=== PATIENT | male | born 1970 | race Caucasian/White ===

== ENCOUNTER 2016-06-21 08:47 | Emergency (ER) | payer OTHER ==
[~2016-06-21] VITALS: Ht 180.3 cm; Wt 102.1 kg
[~2016-06-21 08:47] MED LIST: ALBUTEROL0.09 MG/A1 INH; AMOXIL 875 MG875 MG PO; AUGMENTIN 875-1 EACH PO; LEVSIN/SL0.125 MG SL; MOTRIN 800MG T800 MG PO; MULTIPLE VITAM1 EAC2 PO; PREDNISONE 20MG20 MG PO; PROMETHAZINE V473 M2 PO; ZOFRAN4 M1 SL
[2016-06-21 08:54] VITALS: BP 155/91
--- NOTE | 2016-06-21 09:06 | ED INFLUENZA/URI COMPLAINT ---
History of Present Illness General Chief Complaint: Upper Respiratory Sx/Fever Stated Complaint: COUGH FEVER JOINT PAIN Source: patient Exam Limitations: no limitations Vital Signs & Intake/Output Vital Signs & Intake/Output Vital Signs Date Time Temp Pulse Resp B/P Pulse O2 O2 Flow FiO2 Ox Delivery Rate 06/21 0952 97.9 06/21 0854 97.9 99 20 155/91 100 Room Air Allergies Coded Allergies: No Known Drug Allergies (10/27/15) Reconcile Medications Albuterol Sulfate (Ventolin Hfa) 90 MCG HFA.AER.AD 2 PUF INH Q4-6 PRN PRN SHORTNESS OF BREATH Amlodipine Besylate 10 MG TABLET 1 TAB PO DAILY HEART (Reported) Azithromycin (Zithromax) 500 MG TABLET 1 TAB PO DAILY BRONCHITIS Benzonatate (Tessalon Perle) 100 MG CAPSULE 1 CAP PO TID PRN COUGH Bupropion HCl (Bupropion XL) 300 MG TAB.ER.24H 1 TAB PO QAM MENTAL HEALTH ( Reported) Mometasone Furoate (Nasonex) 50 MCG SPRAY.PUMP 2 SPRAY NASB DAILY CONGESTION Multivitamin (Multiple Vitamins) 1 EACH TABLET 1 TAB PO DAILY SUPPLEMENT ( Reported) Robitussin AC (Guaifenesin-Codeine Syrup) 200 MG-20 MG/10 ML LIQUID 10 ML PO TID PRN COUGH Triage Note: PT TO ED C/O "SCRATCHY THROAT" SINCE SATURDAY. PRODUCTIVE COUGH WITH GREEN SPUTUM. DENIES FEVERS AT HOME, AFEBRILE NOW. Triage Nurses Notes Reviewed? yes Onset: Gradual Duration: constant Timing: recent history Severity: moderate Severity Numbers: 5 HPI: Patient is a 45-year-old male who presents to emergency room with a 7 day history of gradually worsening itchy scratchy throat, chills, bodyaches, tactile fevers, mild nausea and diarrhea-last bowel movement was today no blood no melena noted. Nonproductive cough headache muscle aches generalized weakness and fatigue. Patient has positive sick contacts at home. Denies any shortness of breath chest pain and arm pain jaw pain leg swelling hemoptysis neck pain neck stiffness (XANDER LAWLER) Past History Travel History Traveled to [place] past 21 day No Medical History Any Pertinent Medical History? see below for history Neurological: NONE EENT: NONE Cardiovascular: hypertension Respiratory: NONE Gastrointestinal: GERD Hepatic: NONE Renal: NONE Musculoskeletal: NONE Psychiatric: depression Endocrine: NONE Surgical History Surgical History: non-contributory Psychosocial History What is your primary language [place] Tobacco Use: Quit >30 days ago ETOH Use: occasional use Illicit Drug Use: denies illicit drug use Family History Hx Contributory? No (XANDER LAWLER) Review of Systems Review of Systems Constitutional: Reports: see HPI, chills, fever. EENTM: Reports: see HPI, nasal congestion. Respiratory: Reports: cough. Cardiovascular: Reports: no symptoms. GI: Reports: no symptoms. Genitourinary: Reports: no symptoms. Musculoskeletal: Reports: see HPI, joint pain. Skin: Reports: no symptoms. Neurological/Psychological: Reports: no symptoms. Hematologic/Endocrine: Reports: no symptoms. Immunologic/Allergic: Reports: no symptoms. All Other Systems: Reviewed and Negative (XANDER LAWLER) Physical Exam Physical Exam General Appearance: no apparent distress, alert, comfortable Ears, Nose, Throat: moist mucous membrane, hearing grossly normal, Tympanic normal, pharynx normal, nasal congestion, nasal drainage, nontender sinus Comments: Well-developed well-nourished person in no acute distress HEENT: extraocular motion intact, no nystagmus. Pupils equally round and reactive to light and accommodation. Nose is atraumatic. External auditory canal and Tympanic membranes clear. Pharynx normal. No swelling or edema. Neck: Supple, no lymphadenopathy, normal range of motion without pain or tenderness Back: Nontender, no CVA tenderness. Full range of motion Cardiovascular: Regular rate and rhythms no murmurs rubs or gallops, normal JVP Respiratory: Chest nontender. No respiratory distress.breath sounds clear to auscultation bilaterally Abdomen: Soft, nontender nondistended, no appreciable organomegaly. Normal bowel sounds. No ascites Extremity: No edema, no calf tenderness to palpation, normal and equal pulses. Neuro: Alert oriented x3, motor sensory normal, cranial nerves II through XII grossly intact. Skin: No appreciable rash on exposed skin, skin is warm and dry. Psych: Mood and affect is normal, memory and judgment is normal. Core Measures Severe Sepsis Present: No Septic Shock Present: No (XANDER LAWLER) Progress Differential Diagnosis: influenza, meningitis, neutropenia, otitis, pneumonia, pharyngitis, sinusitis Plan of Care: Orders Procedure Date/time Status RAPID VIRAL INFLUENZA A 06/21 905 Complete THROAT CULTURE W/QUICK STREP 06/21 905 Active Patient currently is in no apparent distress. Patient had negative influenza and negative rapid strep culture is pending. Patient will be treated for concerns of upper respiratory infection and bronchitis. No signs of meningitis. Oxygen saturation 98% room air (XANDER LAWLER) Initial ED EKG: none (XANDER LAWLER) Departure Departure Disposition: HOME OR SELF CARE Condition: Stable Clinical Impression Primary Impression: Upper respiratory infection Referrals: LAKHWINDER DENISE APRN (PCP/Family) Additional Instructions: As discussed begin the prescription of azithromycin for the full course. Begin the prescription Tessalon Perles and Robitussin with codeine for cough. Begin the prescription of Ventolin for shortness of breath and Nasonex for congestion. Begin [id number] Mucinex and Sudafed for congestion. If no better on Saturday follow-up with primary care doctor. If symptoms worsen return to emergency room. Begin drinking plenty of water for hydration begin over-the- counter Motrin for pain and Tylenol for fevers. Prescription is waiting at [facility] Departure Forms: Customer Survey General Discharge Information Prescriptions: Current Visit Scripts Benzonatate (Tessalon Perle) 1 CAP PO TID PRN COUGH #21 CAP Robitussin AC (Guaifenesin-Codeine Syrup) 10 ML PO TID PRN COUGH #100 ML Albuterol Sulfate (Ventolin Hfa) 2 PUF INH Q4-6 PRN PRN SHORTNESS OF BREATH #1 INHAL Azithromycin (Zithromax) 1 TAB PO DAILY #5 TAB Mometasone Furoate (Nasonex) 2 SPRAY NASB DAILY #1 INHAL (XANDER LAWLER) PA/GENERAL HOUSE WORKER Co-Sign Statement Statement: ED Attending supervision documentation- [] I saw and evaluated the patient. I have also reviewed all the pertinent lab results and diagnostic results. I agree with the findings and the plan of care as documented in the PA's/GENERAL HOUSE WORKER's documentation. [x] I have reviewed the ED Record and agree with the PA's/GENERAL HOUSE WORKER's documentation. [] Additions or exceptions (if any) to the PAs/GENERAL HOUSE WORKER's note and plan are summarized below: [] (JAMES SÁNCHEZ DO)
[2016-06-21] MEDS ORDERED: BUPROPION XL300 M1 PO (09:12)
[2016-06-21] MEDS ORDERED: AMLODIPINE BESY10 M1 PO (09:13)
[2016-06-21] MEDS ORDERED: NASONEX17 GM NASB (09:59)
[2016-06-21] MEDS ORDERED: VENTOLIN HFA18 GM INH (09:59)
[2016-06-21] MEDS ORDERED: ZITHROMAX500 M2 PO (09:59)
[2016-06-21] MEDS ORDERED: GUAIFENESIN-COD10 ML PO (09:59)
[2016-06-21] MEDS ORDERED: TESSALON PERLE100 M1 PO (09:59)
[2016-11-07] MEDS ORDERED: LOSARTAN POTAS100 M1 PO (17:02)
[2016-11-07] MEDS ORDERED: FUROSEMIDE20 M1 PO (17:03)
[2016-11-07] MEDS ORDERED: OXAPROZIN600 M1 PO (17:04)
[2016-11-07] MEDS ORDERED: ASPIRIN EC81 M1 PO (17:04)
[2016-11-07] MEDS ORDERED: TYLENOL WITH C1 EACH PO (17:47)
== END 2016-06-21 10:12 ==
LOC: ERH 08:47
DX: J06.9 Acute upper respiratory infection, unspecified (principal); Z87.891 Personal history of nicotine dependence
CPT/HCPCS: 87804; 87804-59

== ENCOUNTER 2016-07-19 10:35 | Emergency (ER) | payer OTHER ==
[~2016-07-19] VITALS: Ht 180.3 cm; Wt 104.3 kg
[~2016-07-19 10:35] MED LIST changes: +AMLODIPINE BESY10 M1 PO; +BUPROPION XL300 M1 PO; +GUAIFENESIN-COD10 ML PO; +NASONEX17 GM NASB; +TESSALON PERLE100 M1 PO; +VENTOLIN HFA18 GM INH; +ZITHROMAX500 M2 PO
[2016-07-19 10:51] LABS: ABSOLUTE BASOPHIL COUNT 0 /CUMM (0.0-0.2); ABSOLUTE EOSINOPHIL COUNT 0.1 /CUMM (0.0-0.7); ABSOLUTE GRANULOCYTE CT 3.9 /CUMM (1.4-6.5); ABSOLUTE MONOCYTE COUNT 0.7 /CUMM (0.10-0.60); BASOPHIL % 0.5 % (0.0-2.0); EOSINOPHIL % 1.8 % (0-5); GRANULOCYTE % 57.9 % (42.2-75.2); HEMATOCRIT 40.9 % (42-52); MEAN CORPUSCULAR HGB 29.9 PG (27.0-31.0); MEAN CORPUSCULAR HGB CONC 35.2 G/DL (33.0-37.0); MEAN CORPUSCULAR VOLUME 84.9 FL (80.0-94.0); MEAN PLATELET VOLUME 9.6 FL (7.4-10.4); PLATELET COUNT 187 /CUMM (130-400); RED BLOOD CELL CT 4.82 /CUMM (4.70-6.10); WHITE BLOOD CELL COUNT 6.8 /CUMM (4.8-10.8)
--- NOTE | 2016-07-19 11:34 | ED GI/GU/ABDOMINAL COMPLAINT ---
History of Present Illness General Chief Complaint: Nausea, Vomiting, Diarrhea Stated Complaint: MULTIPLE COMPLAINTS/NAUSEA/LFT EAR PAIN Source: patient Exam Limitations: no limitations Vital Signs & Intake/Output Vital Signs & Intake/Output Vital Signs Date Time Temp Pulse Resp B/P Pulse O2 O2 Flow FiO2 Ox Delivery Rate 07/19 1326 97.5 82 18 132/55 98 Room Air Room Air 07/19 1039 97.7 86 18 144/53 99 Room Air Allergies Coded Allergies: No Known Drug Allergies (10/27/15) Reconcile Medications Albuterol Sulfate (Ventolin Hfa) 90 MCG HFA.AER.AD 2 PUF INH Q4-6 PRN PRN SHORTNESS OF BREATH Amlodipine Besylate 10 MG TABLET 1 TAB PO DAILY HEART (Reported) Azithromycin (Zithromax) 500 MG TABLET 1 TAB PO DAILY BRONCHITIS Benzonatate (Tessalon Perle) 100 MG CAPSULE 1 CAP PO TID PRN COUGH Bupropion HCl (Bupropion XL) 300 MG TAB.ER.24H 1 TAB PO QAM MENTAL HEALTH ( Reported) Dicyclomine Hydrochloride (Bentyl) 10 MG CAPSULE 1 CAP PO TID PRN abdominal pain Mometasone Furoate (Nasonex) 50 MCG SPRAY.PUMP 2 SPRAY NASB DAILY CONGESTION Multivitamin (Multiple Vitamins) 1 EACH TABLET 1 TAB PO DAILY SUPPLEMENT ( Reported) Ondansetron (Zofran Odt) 4 MG TAB.RAPDIS 1 TAB SL TID PRN nausea Robitussin AC (Guaifenesin-Codeine Syrup) 200 MG-20 MG/10 ML LIQUID 10 ML PO TID PRN COUGH Triage Note: STATES THAT HE WOKE THIS AM WITH NAUSEA AND MID ABD AND R SIDE ABD PAIN. HAS NOT VOMITTED Triage Nurses Notes Reviewed? yes HPI: Patient is a 45-year-old male presents complaining of nausea, malaise, upper abdominal pain. Symptoms onset yesterday. Pain is an intermittent sharp pain currently is mild, has been severe at times. Nausea is currently moderate, fatigue is currently moderate to severe. Patient reports that symptoms do not significantly change with eating. Positive sick contacts at home and at work. Subjective fevers and chills. Last bowel movement was this morning and normal. Patient denies suspicious food intake, dysuria, vomiting. Past History Travel History Traveled to [place] past 21 day No Medical History Any Pertinent Medical History? see below for history Neurological: NONE EENT: NONE Cardiovascular: hypertension Respiratory: NONE Gastrointestinal: GERD Hepatic: NONE Renal: NONE Musculoskeletal: NONE Psychiatric: depression Endocrine: NONE Surgical History Surgical History: non-contributory Psychosocial History What is your primary language Martiniquais Tobacco Use: Quit >30 days ago ETOH Use: occasional use Illicit Drug Use: denies illicit drug use Family History Hx Contributory? No Review of Systems Review of Systems Constitutional: Reports: chills, fever, malaise. EENTM: Reports: no symptoms. Respiratory: Denies: cough, short of breath. Cardiovascular: Denies: chest pain. GI: Reports: see HPI, abdominal pain, nausea. Denies: vomiting. Genitourinary: Reports: no symptoms. Musculoskeletal: Reports: back pain (NONE CURRENTLY). Skin: Reports: no symptoms. Neurological/Psychological: Reports: no symptoms. Hematologic/Endocrine: Reports: no symptoms. Immunologic/Allergic: Reports: no symptoms. Physical Exam Physical Exam General Appearance: well developed/nourished, alert, awake Head: atraumatic, normal appearance Eyes: Bilateral: normal appearance, PERRL, EOMI. Ears, Nose, Throat, Mouth: hearing grossly normal, moist mucous membrane Neck: normal inspection, supple, full range of motion Respiratory: normal breath sounds, chest non-tender, no respiratory distress, lungs clear Cardiovascular: regular rate/rhythm (NO MURMUR) Gastrointestinal: normal bowel sounds, soft, MODERATE EPIGASTRIC AND RIGHT UPPER QUADRANT TENDERNESS. mILD DIFFUSE LOWER ABDOMINAL TENDERNESS. Back: normal inspection, normal range of motion Extremities: normal range of motion Neurologic/Psych: no motor/sensory deficits, awake, alert, oriented x 3, normal gait, normal mood/affect Skin: intact, normal color, warm/dry Core Measures ACS in differential dx? No Severe Sepsis Present: No Septic Shock Present: No Progress Differential Diagnosis: AAA, AMI, appendicitis, biliary colic, cholecystitis, diverticulitis, gastritis, hepatitis, ischemic bowel, inflamm bowel dis, pancreatitis, PUD/GERD, perforated viscous, pyelonephritis, SBO, ureterolithiasis, urinary retention, UTI/pyelo Plan of Care: Orders Procedure Date/time Status Add-on Test (ER Only) 07/19 1306 Active CULTURE,URINE 07/19 1231 Active URINALYSIS 07/19 1230 Complete Add-on Test (ER Only) 07/19 1141 Active RAPID VIRAL INFLUENZA A 07/19 1141 Complete LIPASE 07/19 1042 Complete COMPREHENSIVE METABOLIC PANEL 07/19 1039 Complete CBC WITHOUT DIFFERENTIAL 07/19 1039 Complete Laboratory Tests 07/19/16 1228: Urine Color YEL, Urine Clarity CLEAR, Urine pH 6.0, Ur Specific [place] 1.025, Urine Protein NEG, Urine Ketones NEG, Urine Nitrite NEG, Urine Bilirubin NEG, Urine Urobilinogen 0.2, Ur Leukocyte Esterase NEG, Ur Microscopic SEDIMENT EXAMINED, Urine RBC RARE, Urine WBC 3-5 H, Urine Hemoglobin TRACE-INTACT H, Urine Glucose NEG 07/19/16 1042: Anion Gap 12, Estimated GFR > 60, BUN/Creatinine Ratio 18.8, Glucose 93, Calcium 9.6, Total Bilirubin 0.6, AST 35, ALT 47, Alkaline Phosphatase 71, Total Protein 7.3, Albumin 4.4, Globulin 2.9, Albumin/Globulin Ratio 1.5, Lipase 443 H, CBC w Diff NO MAN DIFF REQ, RBC 4.82, MCV 84.9, MCH 29.9, RDW 13.0, MPV 9.6, Gran % 57.9, Lymphocytes % 29.7, Monocytes % 10.1 H, Eosinophils % 1.8, Basophils % 0.5, Absolute Granulocytes 3.9, Absolute Lymphocytes 2.0, Absolute Monocytes 0.7 H, Absolute Eosinophils 0.1, Absolute Basophils 0, PUBS MCHC 35.2 Microbiology 07/19 1231 URINE ROUT: Urine Culture - RECD 07/19 1228 NASOPHARYN: Influenza Virus A & B Rapid Smear - COMP 1305 07/19/16: Results discussed with patient. No peritoneal signs on exam. CT scan deferred. Patient tolerating oral intake, appears stable for discharge. (GATO HUBBARD,PAMELA) Diagnostic Imaging: Viewed by Me: Ultrasound. Discussed w/RAD: Ultrasound. Radiology Impression: PATIENT: OSMEL CALVO PRESENT AGE : 45 PATIENT ACCOUNT NO: [id number] : 72 LOCATION: [facility] ORDERING PHYSICIAN: PAMELA HUBBARD SERVICE DATE: 07/19/16-114 EXAM TYPE: US - US-LIMITED ABDOMEN EXAMINATION: US ABDOMEN LIMITED CLINICAL INFORMATION: Upper abdominal pain and tenderness. COMPARISON: 02/18/2007 TECHNIQUE: Real-time imaging of the right upper quadrant abdominal viscera. FINDINGS: PANCREAS: Obscured by overlying bowel gas. LIVER: The liver demonstrates increased echogenicity suspicious for hepatic steatosis. No focal lesion or intrahepatic biliary duct dilatation is identified. GALLBLADDER: The gallbladder is physiologically distended without evidence of stones, sludge, polyps, wall thickening or pericholecystic fluid. COMMON BILE DUCT: Normal in caliber measuring 0.3 cm in diameter. RIGHT KIDNEY: No hydronephrosis. No renal calculi or focal parenchymal lesions. The kidney measures 10.5 cm in maximum dimension. FREE FLUID: None. IMPRESSION: Hepatic steatosis. Normal appearance of the gallbladder. Pancreas obscured by overlying bowel gas. 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 <Electronically signed in Other Vendor System> SIGNED BY: MARSHA BENNETT MD 07/19/16 1257 Initial ED EKG: none Departure Departure Time of Disposition: 1309 Disposition: HOME OR SELF CARE Condition: Stable Clinical Impression Primary Impression: Abdominal pain Qualifiers: Abdominal location: upper abdomen, unspecified Qualified Code: R10.10 - Upper abdominal pain, unspecified Referrals: LAKHWINDER DENISE APRN (PCP/Family) Additional Instructions: Clinically fluids and rest. Follow-up with primary care provider if no improvement by Saturday. Return to the emergency department immediately if you develop fevers, pain localizes to the right lower abdomen, unable to stay hydrated, or worsening of symptoms. Departure Forms: Customer Survey General Discharge Information Prescriptions: Current Visit Scripts Ondansetron (Zofran Odt) 1 TAB SL TID PRN nausea #10 TAB Dicyclomine Hydrochloride (Bentyl) 1 CAP PO TID PRN abdominal pain #12 CAP
--- NOTE | 2016-07-19 12:57 | ULTRASOUND REPORT ---
EXAMINATION: US ABDOMEN LIMITED CLINICAL INFORMATION: Upper abdominal pain and tenderness. COMPARISON: 02/18/2007 TECHNIQUE: Real-time imaging of the right upper quadrant abdominal viscera. FINDINGS: PANCREAS: Obscured by overlying bowel gas. LIVER: The liver demonstrates increased echogenicity suspicious for hepatic steatosis. No focal lesion or intrahepatic biliary duct dilatation is identified. GALLBLADDER: The gallbladder is physiologically distended without evidence of stones, sludge, polyps, wall thickening or pericholecystic fluid. COMMON BILE DUCT: Normal in caliber measuring 0.3 cm in diameter. RIGHT KIDNEY: No hydronephrosis. No renal calculi or focal parenchymal lesions. The kidney measures 10.5 cm in maximum dimension. FREE FLUID: None. IMPRESSION: Hepatic steatosis. Normal appearance of the gallbladder. Pancreas obscured by overlying bowel gas.
[2016-07-19] MEDS ORDERED: ZOFRAN ODT4 M1 SL (13:10)
[2016-07-19] MEDS ORDERED: BENTYL10 M1 PO (13:10)
[2016-07-19 13:26] VITALS: BP 132/55
[2016-11-07] MEDS ORDERED: LOSARTAN POTAS100 M1 PO (17:02)
[2016-11-07] MEDS ORDERED: FUROSEMIDE20 M1 PO (17:03)
[2016-11-07] MEDS ORDERED: ASPIRIN EC81 M1 PO (17:04)
[2016-11-07] MEDS ORDERED: OXAPROZIN600 M1 PO (17:04)
[2016-11-07] MEDS ORDERED: TYLENOL WITH C1 EACH PO (17:47)
== END 2016-07-19 13:33 ==
LOC: ERH 10:35
PROVIDERS: Emergency Medicine
DX: R10.13 Epigastric pain (principal); R10.11 Right upper quadrant pain; R10.30 Lower abdominal pain, unspecified; H92.02 Otalgia, left ear
CPT/HCPCS: 81001; 87086; 87804; 87804-59; 96361; 96374; J2405

== ENCOUNTER 2016-07-27 07:54 | Emergency (ER) | payer OTHER ==
[~2016-07-27] VITALS: Ht 180.3 cm; Wt 104.3 kg
[~2016-07-27 07:54] MED LIST changes: +BENTYL10 M1 PO; +ZOFRAN ODT4 M1 SL
--- NOTE | 2016-07-27 08:02 | ED MVC/FALL/TRAUMA COMPLAINT ---
History of Present Illness General Chief Complaint: Fall Stated Complaint: LEFT KNEE AND RIGHT HAND PAIN S/P FALL Source: patient, old records Exam Limitations: no limitations Vital Signs & Intake/Output Vital Signs & Intake/Output Vital Signs Date Time Temp Pulse Resp B/P Pulse O2 O2 Flow FiO2 Ox Delivery Rate 07/27 0902 97.5 74 18 141/88 97 Room Air 07/27 0816 4.0 07/27 0800 97.6 91 18 164/100 100 Room Air Allergies Coded Allergies: No Known Drug Allergies (10/27/15) Reconcile Medications Albuterol Sulfate (Ventolin Hfa) 90 MCG HFA.AER.AD 2 PUF INH Q4-6 PRN PRN SHORTNESS OF BREATH Amlodipine Besylate 10 MG TABLET 1 TAB PO DAILY HEART (Reported) Azithromycin (Zithromax) 500 MG TABLET 1 TAB PO DAILY BRONCHITIS Benzonatate (Tessalon Perle) 100 MG CAPSULE 1 CAP PO TID PRN COUGH Bupropion HCl (Bupropion XL) 300 MG TAB.ER.24H 1 TAB PO QAM MENTAL HEALTH ( Reported) Dicyclomine Hydrochloride (Bentyl) 10 MG CAPSULE 1 CAP PO TID PRN abdominal pain Mometasone Furoate (Nasonex) 50 MCG SPRAY.PUMP 2 SPRAY NASB DAILY CONGESTION Multivitamin (Multiple Vitamins) 1 EACH TABLET 1 TAB PO DAILY SUPPLEMENT ( Reported) Ondansetron (Zofran Odt) 4 MG TAB.RAPDIS 1 TAB SL TID PRN nausea Robitussin AC (Guaifenesin-Codeine Syrup) 200 MG-20 MG/10 ML LIQUID 10 ML PO TID PRN COUGH Tylenol With Codeine (Tylenol With Codeine #3 Tablet) 300 MG-30 MG TABLET 1 TAB PO BID PRN PAIN Triage Nurses Notes Reviewed? yes Onset: Abrupt Duration: day(s): (1), constant Timing: recent history Severity: moderate Severity Numbers: 5 Injuries/Fall Location: upper extremity, lower extremity Method of Injury: fall Loss of Consciousness: no loss of consciousness No Modifying Factors: none Associated Symptoms: DENIES HPI: 45-year-old male presents to emergency room status post mechanical fall off the top of the stool hitting his right medial dorsal hand and left knee approximately 30 minutes prior to arrival. He states he lost his balance on the stool and fell while cleaning a vent in the ceiling. He has not taken anything for his pain which is aching constant nonradiating, he was able to bear weight and walk there was no head strike and no loss of consciousness no neck or back pain. No chest pain right shoulder elbow left arm or right leg pain no numbness or tingling no nausea no vomiting no vision changes. There is no prodromal dizziness or lightheadedness. (XANDER VERDUZCO) Past History Travel History Traveled to [place] past 21 day No Medical History Any Pertinent Medical History? see below for history Neurological: NONE EENT: NONE Cardiovascular: hypertension Respiratory: NONE Gastrointestinal: GERD Hepatic: NONE Renal: NONE Musculoskeletal: NONE Psychiatric: depression Endocrine: NONE Surgical History Surgical History: non-contributory Psychosocial History What is your primary language Tristanian Family History Hx Contributory? No (XANDER VERDUZCO) Review of Systems Review of Systems Constitutional: Reports: see HPI. All Other Systems: Reviewed and Negative Comments Review of systems: See HPI, All other systems negative. Constitutional, no chills no fever, no malaise HEENT: No visual changes no sore throat no congestion, no ear pain Cardiovascular: No chest pain , no palpitation , Skin, no jaundice no rashes, no change in skin Respiratory: No dyspnea no cough no sputum GI: No nausea no vomiting, no diarrhea, : No dysuria No hematuria, no frequency Muscle skeletal: joint pain, no joint swelling, no back pain, no neck pain, Neurologic: No numbness no confusion, no headache Psych: No stress Heme/endocrine: No bruising no bleeding Immunology: No lymphadenopathy (XANDER VERDUZCO) Physical Exam Physical Exam General Appearance: well developed/nourished, alert, awake Comments: Well-developed well-nourished person in no acute distress HEENT: Normal EENT exam; PERRL, EOMI. HEAD is atraumatic. moist mucous membranes. Neck: Supple, normal range of motion no midline or paracervical tenderness Back: Nontender, no CVA tenderness. Full range of motion Cardiovascular: Regular rate and rhythms no murmurs rubs Respiratory: Chest nontender.There were no bony deformities, no asymmetry. No respiratory distress. Patient speaking in full complete sentences. Breath sounds clear to auscultation bilaterally: NO W/R/R Abdomen: Soft, nontender nondistended, Shoulder: Atraumatic/Stable. FROM . Elbow: Atraumatic/stable. FROM. No laxity Upper arm/Forearm: Atraumatic. Nontender. 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 Skin intact. FROM of all fingers, hand and wrist, full senstaion to distal fingers Pulses: Normal/equal radial pulses bilaterally. Brisk cap refill Hip/Pelvis: Atraumatic/Stable. FROM. Knee: Atraumatic/stable. FROM. No joint swelling, no effusion. No laxity. Negative trice/anterior drawer test. Tender to palpation over the anterior left knee there is no ecchymosis Leg: Atraumatic. Nontender. No edema, 5 out of 5 strength in the lower extremity, normal dorsiflexion of great toe bilaterally, gross sensation is intact, patellar tendon reflex 2+ bilaterally. Ankle/Foot: Atraumatic/stable. Skin intact. FROM. No swelling, no effusion. No laxity on exam Pulses: Normal/equal DP/PT pulses bilaterally. Brisk cap refill Neuro: Alert oriented x3, motor sensory normal. There were no obvious focal neurologic abnormalities. Skin: No appreciable rash on exposed skin, skin is warm and dry. Psych: Mood and affect is normal, memory and judgment is normal. Core Measures ACS in differential dx? No Severe Sepsis Present: No Septic Shock Present: No (XANDER VERDUZCO) Progress Differential Diagnosis: C/T/L spine injury, ext injury, pelvis injury, spinal cord injury Plan of Care: Orders Procedure Date/time Status Durable Medical Equipment 07/27 0854 Active Xrays ordered, old records reviewed, pt med with ibuprofen 800mg d/w the pt and his family his xray results, los wrap applied to r hand, leg immobilizer to left knee, advised marilee vanegas f/u with pmd, return with any concerns. they feel comfortable with plan cleared for dc (XANDER VERDUZCO) Diagnostic Imaging: Viewed by Me: Radiology Read. Discussed w/RAD: Radiology Read. Radiology Impression: PATIENT: OSMEL CALVO PRESENT AGE : 45 PATIENT ACCOUNT NO: [id number] : 72 LOCATION: [facility] [place] ORDERING PHYSICIAN: XANDER HUBBARD SERVICE DATE: 07/27/16 EXAM TYPE: RAD - XRY- FOREARM, RIGHT; XRY-HAND, RIGHT; XRY-KNEE COMPLETE LEFT EXAMINATION: X-RAY RIGHT HAND X-RAY LEFT KNEE COMPLETE X-RAY RIGHT FOREARM CLINICAL INFORMATION: Fall at work with pain COMPARISON: None. TECHNIQUE: 3 views right hand 2 views right forearm 4 views left knee FINDINGS: Right hand: There are no fractures or dislocations. No joint effusion. No bone, joint, or soft tissue abnormality is demonstrated. Right forearm: There are no fractures or dislocations. No joint effusion. No bone, joint, or soft tissue abnormality is demonstrated. Left knee: There are no fractures or dislocations. No joint effusion. No bone, joint, or soft tissue abnormality is demonstrated. IMPRESSION: Unremarkable radiographs. DICTATED BY: VALERIE RUCKER MD DATE/TIME DICTATED:07/27/16835 ART MUSEUM AIDE:JUAN DATE/TIME TRANSCRIBED:07/27/16835 CONFIDENTIAL, DO NOT COPY WITHOUT APPROPRIATE AUTHORIZATION. <Electronically signed in Other Vendor System> SIGNED BY: VALERIE RUCKER MD 07/27/16 0842 (XANDER VERDUZCO) Departure Departure Time of Disposition: 850 Disposition: HOME OR SELF CARE Condition: Stable Clinical Impression Primary Impression: Hand sprain Secondary Impressions: Fall, Knee sprain Referrals: LAKHWINDER DENISE APRN (PCP/Family) Additional Instructions: Rest, ice, ibuprofen 800 mg every 8 hours, Tylenol with codeine as discussed for breakthrough pain, use caution as this is a narcotic highly addictive. No driving or drinking alcohol while taking. Leg immobilizer while walking, Los wrap so as discussed, follow up with your primary care physician next week return at anytime sooner with any concerns Departure Forms: Customer Survey General Discharge Information Prescriptions: Current Visit Scripts Tylenol With Codeine (Tylenol With Codeine #3 Tablet) 1 TAB PO BID PRN PAIN #8 TAB (XANDER VERDUZCO) PA/MANAGER PROJECT MANAGEMENT Co-Sign Statement Statement: ED Attending supervision documentation- [] I saw and evaluated the patient. I have also reviewed all the pertinent lab results and diagnostic results. I agree with the findings and the plan of care as documented in the PA's/MANAGER PROJECT MANAGEMENT's documentation. [X] I have reviewed the ED Record and agree with the PA's/MANAGER PROJECT MANAGEMENT's documentation. [] Additions or exceptions (if any) to the PAs/MANAGER PROJECT MANAGEMENT's note and plan are summarized below: [] (NABEEL VILLEDA,OLGA)
--- NOTE | 2016-07-27 08:42 | RADIOLOGY REPORT ---
EXAMINATION: X-RAY RIGHT HAND X-RAY LEFT KNEE COMPLETE X-RAY RIGHT FOREARM CLINICAL INFORMATION: Fall at work with pain COMPARISON: None. TECHNIQUE: 3 views right hand 2 views right forearm 4 views left knee FINDINGS: Right hand: There are no fractures or dislocations. No joint effusion. No bone, joint, or soft tissue abnormality is demonstrated. Right forearm: There are no fractures or dislocations. No joint effusion. No bone, joint, or soft tissue abnormality is demonstrated. Left knee: There are no fractures or dislocations. No joint effusion. No bone, joint, or soft tissue abnormality is demonstrated. IMPRESSION: Unremarkable radiographs.
[2016-07-27] MEDS ORDERED: TYLENOL WITH C1 EACH PO (08:52)
[2016-07-27 09:02] VITALS: BP 141/88
[2016-11-07] MEDS ORDERED: LOSARTAN POTAS100 M1 PO (17:02)
[2016-11-07] MEDS ORDERED: FUROSEMIDE20 M1 PO (17:03)
[2016-11-07] MEDS ORDERED: ASPIRIN EC81 M1 PO (17:04)
[2016-11-07] MEDS ORDERED: OXAPROZIN600 M1 PO (17:04)
[2016-11-07] MEDS ORDERED: TYLENOL WITH C1 EACH PO (17:47)
== END 2016-07-27 09:13 ==
LOC: ERH 07:54
DX: S63.91XA Sprain of unspecified part of right wrist and hand, initial encounter (principal); S83.92XA Sprain of unspecified site of left knee, initial encounter; W17.89XA Other fall from one level to another, initial encounter; Y93.E9 Activity, other interior property and clothing maintenance; Y92.009 Unspecified place in unspecified non-institutional (private) residence as the place of occurrence of the external cause
CPT/HCPCS: 73090-RT; 73130-RT; 73562-LT; J3101